=== PATIENT | male | born 1975 | race Caucasian/White ===

== ENCOUNTER 2020-09-26 12:53 | Day surgery (SDC) | payer OTHER ==
[2020-09-26] MEDS ORDERED: ceFAZolin 2 GM/50 ML 2 GM/50 ML BAG IV ONE (13:25)
[2020-09-26] MEDS ORDERED: LACTATED RINGERS 1,000 ML IV ONE ×2 (13:40→20:40)
[2020-09-26 15:55] LABS: C. PNEUMONIAE- RESP PCR PANEL NOT DETECTED
--- NOTE | 2020-09-26 16:06 | ANESTHESIA ---
Pre-Anesthesia VS, & Labs - Diagnosis left zygomatic fracture - Procedure ORIF left complicated fracture zygomatic arch and orbital fracture with implant Vital Signs: Temp Pulse Resp BP Pulse Ox 37.3 C 60 16 129/78 100 09/26/20 13:40 09/26/20 13:40 09/26/20 13:40 09/26/20 13:40 09/26/20 13:40 Height: 6 ft 1 in Weight (kg): 98.7 kg Body Mass Index: 28.7 BMI Classification: Overweight - NPO >8 hours Last Food Intake: 0630 oatmeal Home Medications and Allergies Home Medications: Ambulatory Orders Acetaminophen [Tylenol] 1,000 mg PO PRN PRN 09/26/20 Acetaminophen [Tylenol] 1,000 mg PO PRN PRN 09/26/20 Allergies/Adverse Reactions: Allergies Allergy/AdvReac Type Severity Reaction Status Date / Time carbamazepine [From Tegretol] Allergy Unknown Verified 09/26/20 08:41 dimethyl fumarate Allergy Unknown Verified 09/26/20 16:10 [From Tecfidera] Anes History & Medical History - Anesthetic History Family history of Anesthesia Complications: Denies Family history of Malignant Hyperthermia: Denies - Medical History Cardiovascular: reports: None Pulmonary: reports: None Gastrointestinal: reports: None Urinary: reports: None Neuro: reports: Seizure disorder (as a child/teen, now resolved), Other (MS) Musculoskeletal: reports: None Endocrine/Autoimmune: reports: None Blood Disorders: reports: None Skin: reports: None Smoking Status: Light tobacco smoker (1 cigar per week) Psychosocial: reports: Alcohol (one drink per day), Cannabis (weekly smoke) History of Cancer?: No Exam General: Alert, Oriented x3, Cooperative, No acute distress Dental: WNL Mouth Openin Fingerbreadth Neck Mobility: Normal Mallampati classification: III Thyromental Distance: 4-6 cm Mental/Cognitive Status: Alert/Oriented X3, Normal for patient Plan Anesthesia Type: General Consent for Procedure(s) Verified and Reviewed: Yes Code Status: Attempt Resuscitation ASA classification: 2-Mild systemic disease Is this case an emergency?: No
[2020-09-26] MEDS ORDERED: MIDAZOLAM 2 MG/2 ML VIAL ONE (16:33)
[2020-09-26] MEDS ORDERED: PROPOFOL 200 MG/20 ML VIAL IVP ONE (16:34)
[2020-09-26] MEDS ORDERED: fentaNYL 100 MCG/2 ML VIAL ONE ×3 (16:34→21:09)
[2020-09-26] MEDS ORDERED: LIDOCAINE-MPF 2% 5 ML VIAL ONE (16:34)
[2020-09-26] MEDS ORDERED: ROCURONIUM 50 MG/5 ML VIAL ONE (16:34)
[2020-09-26] MEDS ORDERED: MINERAL OIL/PETROLAT OPHTH OINT ONE (16:40)
[2020-09-26] MEDS ORDERED: SEVOFLURANE 250 ML LIQUID INH ONE (16:41)
[2020-09-26] MEDS ORDERED: CHLORHEXIDINE GLUCONATE 15 ML UDC PO ONE (16:53)
[2020-09-26] MEDS ORDERED: OXYMETAZOLINE HCL 100 SPRAYS BOTTLE NAS ONE ×3 (16:53→18:00)
[2020-09-26] MEDS ORDERED: LIDOCAINE 2%-EPI 1:100000 20 ML MDV ONE (16:56)
[2020-09-26] MEDS ORDERED: DEXAMETHASONE 10 MG/ML VIAL ONE (17:25)
[2020-09-26] MEDS ORDERED: LIDOCAINE 2%-EPI 1:100000 20 ML MDV SUBQ ONE ×2 (17:27→18:00)
[2020-09-26] MEDS ORDERED: HYDROmorphone 1 MG/ML CARPUJECT ONE (18:14)
[2020-09-26] MEDS ORDERED: HYDROmorphone 0.5 MG/0.5 ML SYRINGE IVP PRN ×2 (19:26→21:02)
[2020-09-26] MEDS ORDERED: ONDANSETRON 4 MG/2 ML VIAL IVP PRN ×2 (19:26→21:02)
[2020-09-26] MEDS ORDERED: MORPHINE 2 MG/ML CARPUJECT IVP PRN (19:26)
[2020-09-26] MEDS ORDERED: NALOXONE 0.4 MG/ML VIAL IVP PRN (19:26)
[2020-09-26] MEDS ORDERED: ATROPINE ABBOJECT 1 MG/10 ML SYRINGE IVP PRN (19:26)
[2020-09-26] MEDS ORDERED: ACETAMINOPHEN 1,000 MG/100 ML 100 ML IV ONE (19:31)
[2020-09-26] MEDS ORDERED: LACTATED RINGERS 1,000 ML IV SCH (20:00)
[2020-09-26] MEDS ORDERED: ONDANSETRON 4 MG/2 ML VIAL ONE (20:34)
[2020-09-26] MEDS ORDERED: BACITRACIN ZINC OINT 1 PACKET TOP ONE (20:35)
--- NOTE | 2020-09-26 20:58 | ANESTHESIA POST OP EVALUATION ---
Anesthesia Post Eval - Post Anesthesia Eval Vitals: Last Vital Signs Temp 37.3 C 09/26/20 13:40 Pulse 60 09/26/20 13:40 Resp 16 09/26/20 13:40 BP 129/78 09/26/20 13:40 Pulse Ox 100 09/26/20 13:40 CV Function Including HR & BP: positive: Stable Pain Control: positive: Satisfactory Nausea & Vomiting: positive: Negative Mental Status: positive: Baseline Respiratory Status: Airway Patent Hydration Status: Satisfactory Anesthesia Complications: positive: None
[2020-09-26] MEDS: fentaNYL 100 MCG/2 ML VIAL IVP PRN ×2 (21:01→21:10)
[2020-09-26] MEDS ORDERED: OXYMETAZOLINE HCL 100 SPRAYS BOTTLE NAS PRN (21:12)
[2020-09-26] MEDS: HYDROmorphone 0.5 MG/0.5 ML SYRINGE IVP PRN (22:22)
[2020-09-26] MEDS: oxyCODONE 5 MG TABLET PO PRN (22:23)
[2020-09-26] MEDS: AMOX/CLAV 875 MG/125 MG TABLET PO SCH (22:54)
[2020-09-26] MEDS: CHLORHEXIDINE GLUCONATE 15 ML UDC PO SCH (22:54)
[2020-09-27] MEDS: HYDROmorphone 0.5 MG/0.5 ML SYRINGE IVP PRN ×2 (00:32→04:47)
--- NOTE | 2020-09-27 02:36 | OPERATIVE REPORT ---
DATE OF SERVICE: 09/26/2020 Physician: Davie Johnson DDS PREOPERATIVE DIAGNOSES 1. Left orbital floor blowout fracture. 2. Left zygomaticomaxillary fracture, comminuted. 3. Fragment of bone from the orbital fracture impinging on the left lateral rectus muscle. POSTOPERATIVE DIAGNOSES 1. Left orbital floor blowout fracture. 2. Left zygomaticomaxillary fracture, comminuted. 3. Fragment of bone from the orbital fracture impinging on the left lateral rectus muscle. PROCEDURE PERFORMED 1. Open reduction and internal fixation of the left zygomaticomaxillary complex fracture via multipl e facial approaches. 2. Open reduction and internal fixation of left orbital floor via transconjunctival approach with pl acement of an implant. 3. Exploration of the left lateral orbit and removal of bone shard from the left lateral rectus musc le. PRIMARY SURGEON: Davie Johnson DDS LEAD DATA ENTRY OPERATOR: Sarabjit. ANESTHESIA TYPE: General anesthesia via oral endotracheal intubation. ANESTHESIOLOGIST: Nely Gresham, VALERIA DRAINS, PACKS, AND CATHETERS: None. COMPLICATIONS: None. ESTIMATED BLOOD LOSS: 75 mL IMPLANTS: Biomet midface implants were used; one L plate, one straight plate and one orbital floor i mplant were all placed with multiple 4 and 5 mm fixation screws. INDICATIONS FOR PROCEDURE: Patient is a 45-year-old male. He reports that he fell off his bed 17 da ys ago and landed on the left side of his face. Immediately after the injury he was unconscious, but he later woke up and found pain and deformity of the left side of his face. He reported no visual d isturbances. He went to see a number of practitioners who were unable to provide him with surgical c orrection of the deformity. He was referred to my clinic where he presented and was found to have, u jennifer clinical and radiographic examination, a severely displaced left zygomaticomaxillary complex frac ture as well as an orbital floor fracture. The patient also reported the bone shard in the left late ral rectus muscle, which he said that at that time was not causing pain, but it did concern him and h e wanted to have it removed because it was concerned that it would cause bleeding behind his eye. It was decided that open reduction and internal fixation of his ZMC fracture was necessary as well as o pen reduction and internal fixation of the orbital floor fracture, if it became necessary during the procedure, as well as removal of the bone fragment from the left lateral rectus muscle. This plan was discussed with the patient and the risks, benefits and alternatives were discussed incl uding pain, swelling, bleeding, infection, loss of vision, permanent change in vision, permanent doub le vision, permanent scarring, entropion, ectropion, need for further surgery, sinus problems, perman ent numbness, hardware failure and cosmetic deformity. Adequate time was given to answer all questio ns and informed consent was obtained. DESCRIPTION OF PROCEDURE: The patient was brought to the main operating room and placed in supine po sition on the operating table. General anesthesia was induced by the anesthesia team. The airway wa s intubated. The airway was secured with an oral DOMINIC tube taped to the right corner of the mouth. A ll pressure points were padded and checked. The patient was prepped and draped in the standard steri le fashion for an orbital fracture repair. Lacri-Lube was placed in both eyes. Corneal nguyễn were placed on each side. The mouth was cleansed with chlorhexidine mouth rinse and a toothbrush. A thr oat pack was placed. A formal timeout was executed. Local anesthesia was achieved with 8 mL of 2% l idocaine with 1:100,000 epinephrine. The attention was first directed intraorally. An incision was made at the height of the vestibule an d, taking care to protect Stensen's duct, this incision was carried anteriorly to the piriform rim. The incision was then carried down through the periosteum. Subperiosteal dissection was performed, e xposing the fracture. Clinically the fracture was noted to be comminuted and very, very depressed. The inferior orbital rim was palpated and a very large step-off was noted, which was not as evident d uring the patient's clinical exam in the office, probably because of the anticipated tenderness assoc iated with the fracture and adequate palpation. However, a very large step-off was noted and it was realized that this rim would have to be reduced by bringing the ZMC very facial. A urethral sound wa s then placed under the anterior portion of the arch and attempted to mobilize the segment, but it di d not mobilize very easily. Some reduction was achieved, but it rebounded quickly once the pressure was taken off above. It was then decided to open the lateral orbit. An incision was made over the l ateral orbital rim about 1 cm in length. It was made with a #15 blade. Blunt dissection was carried out down to the periosteum and the periosteum was incised with electrocautery. Subperiosteal dissec tion was then performed, exposing the lateral orbital rim. The fracture was not of the left lateral orbital rim, but was instead in the lateral orbital wall; and after careful dissection and careful he mostasis in this area, we did locate a 4 mm fragment of bone that was displaced into the orbital cont ents and this bone was delicately removed. No bleeding was noted when the fragment was removed and t he fragment was discarded. Attention was then directed to the inferior lid. A Desmarres retractor was used to retract the lower lid. Unfortunately, because the segment was so displaced, good palpation of the infraorbital rim wa s impossible, and thus making the dissection down to the rim slightly more difficult than normal. Th e conjunctiva was incised with a #15 blade. The tissues deep to the conjunctiva were dissected caref ully and bluntly with cotton-tip applicators. Subperiosteal dissection was performed, exposing the f jon fracture. The floor fracture was definitely worse clinically than it was anticipated to be radi ographically and the medial wall was blown out and this course over to the orbital floor where the se gment was pushed so posteriorly and inferiorly that there was gross protrusion of the orbital content s into the sinus. However, now being able to visualize this fractured segment of the ZMC from two di fferent approaches, we were finally able to reduce it reliably by applying force at the infraorbital rim location and applying force with the urethral sound from the intraoral approach. Applying both t hese forces simultaneously, the ZMC reduced nicely and we could appreciated its good reduction by the approximation of the rim. At this point, we turned our attention back intraorally. The site was suctioned and the previously p laced cotton pledgets with Afrin, which had been used to aid in hemostasis in this incision, were rem corinne. After more careful reduction of the bone, an L plate was used to fixate the zygomatic buttress and then a straight plate was used to fixate more anteriorly to the piriform rim area. These were h eld in place with multiple screws and the reduction of the bone was good. One of the comminuted segm ents was able to be brought forward and a single screw was used to pull this comminuted segment into place. None of the other comminuted segments could be brought into a reduced position because they w ere too small. However, the comminuted segment that did drop into position showed good reduction on both margins and was an encouraging and welcome finding, because it meant that the overall reduction was accurate. Attention was again turned to the transconjunctival incision and the floor was again exposed. An orb ital floor implant was fashioned and reduced down to the proper size and then swept carefully into th is location. The orbital floor implant found most of its posterior support from the lateral orbit, w here the floor was still intact at the medial orbit. No posterior support could be found. Once it w as secured in place with 2 screws, the soft tissues were carefully lifted around the margins of the i mplant to make sure that they were not being pinched down by the implant. A forced duction test was then performed to verify that the globe still had full motion. The patient's face was cleansed and all the wounds were rinsed thoroughly with sterile saline. The l ateral orbital incision was then closed, closing the deep layers with 4-0 Vicryl suture, closing the skin with 5-0 Prolene sutures. The transconjunctival approach was closed using 5-0 gut suture in an interrupted fashion and the intraoral incision was closed using 4-0 Vicryl suture in a running interl ocking fashion. The mouth was rinsed free of debris. The corneal nguyễn were removed. Another for eric duction test was completed. The eyes were rinsed with BSS. The mouth was rinsed and the throat pack was removed. The patient was accompanied to the PACU. Once he was awake, his vision was tested by having him cove r up his right eye and having him read fingers in a dimly lit room from three feet away and he could do this with ease and he reported no changes in his vision. He was also asked to look up and down, l eft and right and he had no limitation of gaze in any direction of gaze. TD: 09/26/2020 21:34
[2020-09-27] MEDS: oxyCODONE 5 MG TABLET PO PRN ×2 (05:07→09:12)
[2020-09-27 08:30] VITALS: BP 127/79
[2020-09-27] MEDS: CHLORHEXIDINE GLUCONATE 15 ML UDC PO SCH (08:41)
[2020-09-27] MEDS: AMOX/CLAV 875 MG/125 MG TABLET PO SCH (08:41)
== END 2020-09-27 10:28 | disposition home or self-care (01) ==
LOC: SDS 12:53 → MS2 21:50 → SDS 09-27 10:28
PROVIDERS: ATTEND Dentist Oral and Maxillofacial Surgery
DX: S02.40FA Zygomatic fracture, left side, initial encounter for closed fracture (principal); S02.32XA Fracture of orbital floor, left side, initial encounter for closed fracture; S02.40DA Maxillary fracture, left side, initial encounter for closed fracture; Z20.822 Contact with and (suspected) exposure to COVID-19; E66.3 Overweight; Z68.28 Body mass index [BMI] 28.0-28.9, adult; F17.290 Nicotine dependence, other tobacco product, uncomplicated
CPT/HCPCS: 0202U; 21365; 21390; A9270; C1713; J0131; J0690; J1170; J3490; J7120